=== PATIENT | male | born 1970 ===

== ENCOUNTER 2017-06-16 08:03 | Emergency (ER) | payer OTHER ==
[2017-06-16 08:11] VITALS: TEMP 97.8
[2017-06-16] MEDS ORDERED: Lactated Ringer's 1,000 ML ONE (08:44)
[2017-06-16 08:57] LABS: BASO # 0.1 K/uL (0.0-0.2); EOS # 0.1 K/uL (0.0-0.7); LYMPH # 1.2 K/uL (1.0-4.3); MONO # 0.3 K/uL (0.0-0.8); WHITE BLOOD COUNT 4.8 K/uL (4.8-10.8)
[2017-06-16] MEDS: Lactated Ringer's 1,000 ML IV ONE ×2 (09:00→10:25)
[2017-06-16 09:15] LABS: BASO % 1.4 % (0.0-2.0); EOS % 1.3 % (0.0-4.0); HEMATOCRIT 41.6 % (35.0-51.0); LYMPH % 25.2 % (20.0-40.0); MEAN CELL VOLUME 86.8 fL (80.0-94.0); MEAN CORPUSCULAR HEMOGLOBIN 31.2 pg (27.0-31.0); MEAN CORPUSCULAR HGB CONC 35.9 g/dL (33.0-37.0); MEAN PLATELET VOLUME 7.4 fL (7.2-11.7); MONO % 6.8 % (0.0-10.0); NRBC % 0.1 % (0.0-2.0); RED CELL DISTRIBUTION WIDTH 12.2 % (11.5-14.5)
--- NOTE | 2017-06-16 09:23 | C.PDOC ---
History Of Present Illness 46 yo male come in for evaluation of left sided abdominal pain intermittent for past 3 days. Pt reports, " feels like is something is swollen inside on left side, hurt for 3 days". Pt describes pain as localized, (+) reproducible over Left mid abdominal wall, non-radiating and slightly improves with BM. Otherwise , pt denies fever, chills, known trauma or injury, neck pain, CP, SOB, dyspnea, diaphoresis, palpitation, V/D or constipation, back pain, UTI sx. Pt ambulate to Ed for evaluation, not in any apparent distress. Time Seen by Provider: 06/16/17 08:12 Chief Complaint (Nursing): Abdominal Pain History Per: Patient Past Medical History Reviewed: Historical Data, Nursing Documentation, Vital Signs Vital Signs: Last Vital Signs Temp 97.8 F 06/16/17 11:01 Pulse 71 06/16/17 11:01 Resp 20 06/16/17 11:01 BP 115/72 06/16/17 11:01 Pulse Ox 99 06/16/17 11:53 - Medical History PMH: Back Problems Surgical History: No Surg Hx Family History: States: No Known Family Hx - Social History Hx Tobacco Use: No Hx Alcohol Use: No Hx Substance Use: No - Immunization History Hx Tetanus Toxoid Vaccination: No Hx Influenza Vaccination: No Hx Pneumococcal Vaccination: No Review Of Systems Except As Marked, All Systems Reviewed And Found Negative. Constitutional: Negative for: Fever, Chills ENT: Negative for: Throat Pain, Throat Swelling Cardiovascular: Negative for: Chest Pain, Palpitations Respiratory: Negative for: Cough, Shortness of Breath, Wheezing Gastrointestinal: Positive for: Abdominal Pain. Negative for: Nausea, Vomiting , Diarrhea, Constipation, Melena, Hematochezia, Hematemesis, Rectal Pain Genitourinary: Negative for: Dysuria, Frequency Musculoskeletal: Negative for: Neck Pain, Back Pain Skin: Negative for: Rash Neurological: Negative for: Weakness, Numbness, Altered Mental Status, Dizziness Physical Exam - Physical Exam Appears: Well, Non-toxic, No Acute Distress Skin: Normal Color, Warm, Dry, No Rash Eye(s): bilateral: PERRL Nose: No Flaring, No Discharge Oral Mucosa: Moist Throat: No Drooling Neck: Trachea Midline, Supple Cardiovascular: Rhythm Regular Respiratory: No Decreased Breath Sounds, No Accessory Muscle Use, No Rales, No Rhonchi Gastrointestinal/Abdominal: Soft, Tenderness (mild left sided abd. tenderness at level of umbiliculs), No Organomegaly, No Distention, No Guarding, No Hernia Back: No CVA Tenderness Extremity: Normal ROM, No Deformity, No Swelling Neurological/Psych: Oriented x3, Normal Speech ED Course And Treatment - Laboratory Results Result Diagrams: 06/16/17 08:54 06/16/17 08:54 Lab Interpretation: Normal O2 Sat by Pulse Oximetry: 99 Pulse Ox Interpretation: Normal - CT Scan/US CT - Other Rad Studies (CT/US): Read By Radiologist, Radiology Report Reviewed CT/US Interpretation: PROCEDURE: CT Abdomen and Pelvis with contrast. HISTORY : Left-sided abdominal pain. COMPARISON: None. TECHNIQUE: CT scan of the abdomen and pelvis was performed after intravenous administration of contrast. Oral contrast was not administered. Coronal and sagittal reformatted images were obtained. Contrast dose: 100 mL Visipaque. Radiation dose: Total exam DLP = 451.60 mGy-cm. This CT exam was performed using one or more of the following dose reduction techniques: Automated exposure control, adjustment of the mA and/or kV according to patient size, and/or use of iterative reconstruction technique. FINDINGS: LOWER THORAX: The lung bases are clear. LIVER: The liver is normal in size and there is diffuse fatty infiltration. No gross lesion or ductal dilatation. GALLBLADDER AND BILE DUCTS: There are no calcified gallstones. PANCREAS: Normal in size with homogeneous enhancement. No gross lesion or ductal dilatation. SPLEEN: Normal in size and appearance. ADRENALS: No discrete nodule. KIDNEYS AND URETERS: Normal in size with homogeneous enhancement. No hydronephrosis. No solid mass. VASCULATURE: No aortic aneurysm. BOWEL: There is mild segmental dilatation of proximal small bowel loops. The mid and distal small bowel loops are normal in caliber. The ileocecal junction is normal. There is moderate amount of stool in the colon. There is mild sigmoid diverticulosis without CT evidence for acute diverticulitis. APPENDIX: Normal appendix. PERITONEUM: No free fluid. No free air. LYMPH NODES: No enlarged lymph nodes. BLADDER: Decompressed. REPRODUCTIVE: Normal in size with central coarse calcifications. BONES: No acute fracture. OTHER FINDINGS: There are bilateral small fat containing inguinal hernias. IMPRESSION: 1. Mild segmental dilatation of proximal small bowel lobes is nonspecific and could be related to nonspecific enteritis or ileus. 2. No CT evidence for acute appendicitis. 3. Mild sigmoid diverticulosis without CT evidence for acute diverticulitis. Progress Note: On re-eval, pt is afberile, hemodynamicaly stable. NOn-toxic. AMbulatory in ED with stable gait. Tolerate PO well in ED. ENT: No acute findings. Neck: SUpple. Lungs: CTA B/L, BS equal B/L. ABd: Benign, (-) guarding, (-) rebound, (-) localized tenderness. back: (-) CVA tenderness. Blood work review and appears normal. CT abd/plevis review. PT has clinical findings c/w. Pt advised and ref. to F/u with PMD, GI In 2-3 days for re-eavl. return to ED if any worsening or new changes. Disposition Counseled Patient/Family Regarding: Diagnosis, Need For Followup, Rx Given - Disposition Referrals: [facility] at [facility] [Outside] Stephen Prescott MD [Staff Provider] - Disposition: HOME/ ROUTINE Disposition Time: 10:47 Condition: STABLE Additional Instructions: Take medication as prescribed Follow up with PMD, GI in 2-3 days for re-evaluation. return to ed if any worsening or new changes. Prescriptions: Ciprofloxacin [Cipro] 1 tab PO BID #14 tab metroNIDAZOLE [Flagyl] 500 mg PO BID #14 tab Instructions: Diverticulosis (ED) Forms: [employer] (Czech) - Clinical Impression Clinical Impression: Diverticulosis
[2017-06-16 09:40] LABS: ALB/GLOB RATIO 1.1 (1.0-2.1); ALKALINE PHOSPHATASE 52 U/L (38-126); ALT/SGPT 45 U/L (21-72); AST/SGOT 34 U/L (17-59); BILIRUBIN,TOTAL 0.7 mg/dL (0.2-1.3); BLOOD UREA NITROGEN 11 mg/dL (9-20); CALCIUM 8.6 mg/dl (8.6-10.4); CARBON DIOXIDE 28 mmol/L (22-30); CHLORIDE 100 mmol/L (98-107); GFR AFRICAN-AMERICAN > 60; GLUCOSE,RANDOM 93 mg/dL (75-110); POTASSIUM 3.8 mmol/L (3.6-5.2); SODIUM 136 mmol/L (132-148); TOTAL PROTEIN 7.8 g/dL (6.3-8.3)
[2017-06-16] MEDS ORDERED: Iodixanol 320 MG/ML 100 ML BOTTLE IV ONE (10:08)
[2017-06-16 10:32] LABS: RBC URINE < 1 /hpf (0-3); URINE BILIRUBIN NEGATIVE (NEGATIVE); URINE BLOOD NEGATIVE (NEGATIVE); URINE COLOR Yellow (YELLOW); URINE GLUCOSE (UA) NORMAL (Normal); URINE KETONE NEGATIVE (NEGATIVE); URINE LEUKOCYTE ESTERASE NEG Leu/uL (Negative); URINE PROTEIN NEGATIVE (NEGATIVE); URINE UROBILINOGEN NORMAL mg/dL (0.2-1.0); WBC URINE < 1 /hpf (0-5)
[2017-06-16 11:02] VITALS: BP 115/72; PULSE 71; RESP 20
--- NOTE | 2017-06-16 11:51 | CT ---
PROCEDURE: CT Abdomen and Pelvis with contrast HISTORY: Left-sided abdominal pain COMPARISON: None. TECHNIQUE: CT scan of the abdomen and pelvis was performed after intravenous administration of contrast. Oral contrast was not administered. Coronal and sagittal reformatted images were obtained. Contrast dose: 100 mL Visipaque Radiation dose: Total exam DLP = 451.60 mGy-cm. This CT exam was performed using one or more of the following dose reduction techniques: Automated exposure control, adjustment of the mA and/or kV according to patient size, and/or use of iterative reconstruction technique. FINDINGS: LOWER THORAX: The lung bases are clear. LIVER: The liver is normal in size and there is diffuse fatty infiltration. No gross lesion or ductal dilatation. GALLBLADDER AND BILE DUCTS: There are no calcified gallstones. PANCREAS: Normal in size with homogeneous enhancement. No gross lesion or ductal dilatation. SPLEEN: Normal in size and appearance. ADRENALS: No discrete nodule. KIDNEYS AND URETERS: Normal in size with homogeneous enhancement. No hydronephrosis. No solid mass. VASCULATURE: No aortic aneurysm. BOWEL: There is mild segmental dilatation of proximal small bowel loops. The mid and distal small bowel loops are normal in caliber. The ileocecal junction is normal. There is moderate amount of stool in the colon. There is mild sigmoid diverticulosis without CT evidence for acute diverticulitis. APPENDIX: Normal appendix. PERITONEUM: No free fluid. No free air. LYMPH NODES: No enlarged lymph nodes. BLADDER: Decompressed. REPRODUCTIVE: Normal in size with central coarse calcifications. BONES: No acute fracture. OTHER FINDINGS: There are bilateral small fat containing inguinal hernias. IMPRESSION: 1. Mild segmental dilatation of proximal small bowel lobes is nonspecific and could be related to nonspecific enteritis or ileus. 2. No CT evidence for acute appendicitis. 3. Mild sigmoid diverticulosis without CT evidence for acute diverticulitis.
[2017-06-16 11:53] VITALS: O2SAT 99
== END 2017-06-16 12:06 | disposition home or self-care (01) ==
LOC: C.ER 08:03
DX: K57.90 Diverticulosis of intestine, part unspecified, without perforation or abscess without bleeding (principal)
CPT/HCPCS: 74177; 80053; 81001; 83690; 85025; 96360; 96361; 99284; J7120; Q9967

== ENCOUNTER 2017-06-21 23:38 | Emergency (ER) | payer OTHER ==
[2017-06-22] MEDS ORDERED: Sodium Chloride 0.9% 1,000 ML IV ONE (00:28)
[2017-06-22] MEDS ORDERED: Sodium Chloride 0.9% 1,000 ML ONE (00:35)
[2017-06-22 00:38] LABS: BASO # 0.1 K/uL (0.0-0.2); BASO % 1.2 % (0.0-2.0); EOS # 0.2 K/uL (0.0-0.7); EOS % 2.9 % (0.0-4.0); HEMATOCRIT 45.6 % (35.0-51.0); LYMPH # 1.4 K/uL (1.0-4.3); LYMPH % 22.1 % (20.0-40.0); MEAN CELL VOLUME 87.8 fL (80.0-94.0); MEAN CORPUSCULAR HEMOGLOBIN 31.1 pg (27.0-31.0); MEAN CORPUSCULAR HGB CONC 35.4 g/dL (33.0-37.0); MEAN PLATELET VOLUME 7.4 fL (7.2-11.7); MONO # 0.5 K/uL (0.0-0.8); MONO % 8.5 % (0.0-10.0); NRBC % 0.1 % (0.0-2.0); RED CELL DISTRIBUTION WIDTH 12.5 % (11.5-14.5); WHITE BLOOD COUNT 6.2 K/uL (4.8-10.8)
[2017-06-22 00:40] LABS: RBC URINE < 1 /hpf (0-3); URINE BILIRUBIN NEGATIVE (NEGATIVE); URINE BLOOD NEGATIVE (NEGATIVE); URINE COLOR Yellow (YELLOW); URINE GLUCOSE (UA) NORMAL (Normal); URINE KETONE NEGATIVE (NEGATIVE); URINE LEUKOCYTE ESTERASE TRACE Leu/uL (Negative); URINE PROTEIN NEGATIVE (NEGATIVE); URINE UROBILINOGEN NORMAL mg/dL (0.2-1.0); WBC URINE 1 /hpf (0-5)
[2017-06-22 01:14] VITALS: TEMP 98.2
[2017-06-22 01:32] LABS: ALB/GLOB RATIO 1.3 (1.0-2.1); ALKALINE PHOSPHATASE 57 U/L (38-126); ALT/SGPT 101 U/L (21-72); AST/SGOT 72 U/L (17-59); BILIRUBIN,TOTAL 0.5 mg/dL (0.2-1.3); BLOOD UREA NITROGEN 8 mg/dL (9-20); CALCIUM 8.5 mg/dl (8.6-10.4); CARBON DIOXIDE 26 mmol/L (22-30); CHLORIDE 101 mmol/L (98-107); GFR AFRICAN-AMERICAN > 60; GLUCOSE,RANDOM 96 mg/dL (75-110); POTASSIUM 3.8 mmol/L (3.6-5.2); SODIUM 136 mmol/L (132-148); TOTAL PROTEIN 7.5 g/dL (6.3-8.3)
--- NOTE | 2017-06-22 01:47 | C.PDOC ---
History Of Present Illness Patient presents to ED c/o LUQ pain x 2 days. Patient was seen here on 06/16 and diagnosed with diverticulosis, given Rxs for Ciprofloxacin and Flagyl. He states the LLQ pain improved. Patient denies fever, nausea/vomiting/diarrhea, dysuria/hematuria, flank pain, testicular pain. Time Seen by Provider: 06/21/17 23:57 Chief Complaint (Nursing): Abdominal Pain History Per: Patient History/Exam Limitations: no limitations Onset/Duration Of Symptoms: Days Severity: Mild Location Of Pain/Discomfort: LUQ Quality Of Discomfort: "Pain" Associated Symptoms: denies: Nausea, Vomiting, Diarrhea Past Medical History Reviewed: Historical Data, Nursing Documentation, Vital Signs Vital Signs: Last Vital Signs Temp 98.2 F 06/22/17 02:14 Pulse 89 06/22/17 02:14 Resp 18 06/22/17 02:14 BP 140/80 06/22/17 02:14 Pulse Ox 99 06/22/17 03:59 - Medical History PMH: Back Problems, Diverticulitis Family History: States: No Known Family Hx - Social History Hx Tobacco Use: No Hx Alcohol Use: No Hx Substance Use: No - Immunization History Hx Tetanus Toxoid Vaccination: No Hx Influenza Vaccination: No Hx Pneumococcal Vaccination: No Review Of Systems Except As Marked, All Systems Reviewed And Found Negative. Constitutional: Negative for: Fever, Chills Cardiovascular: Negative for: Chest Pain, Palpitations Respiratory: Negative for: Shortness of Breath Gastrointestinal: Positive for: Abdominal Pain. Negative for: Nausea, Vomiting , Diarrhea Genitourinary: Negative for: Dysuria, Hematuria Physical Exam - Physical Exam Appears: Well, Non-toxic, No Acute Distress Oral Mucosa: Moist Cardiovascular: Rhythm Regular Respiratory: Normal Breath Sounds, No Rales, No Rhonchi, No Wheezing Gastrointestinal/Abdominal: Bowel Sounds, Soft, Tenderness (mild LUQ TTP, (-) Alonso's, (-) McBurney's) Back: Normal Inspection, No CVA Tenderness Neurological/Psych: Oriented x3 ED Course And Treatment - Laboratory Results Result Diagrams: 06/22/17 00:35 06/22/17 00:35 O2 Sat by Pulse Oximetry: 99 (RA) Pulse Ox Interpretation: Normal Progress Note: Blood work, UA ordered and reviewed. Patient given IV pepcid, IV toradol. Reevaluation Time: 02:15 Reassessment Condition: Improved (On reassessment, patient states his pain has improved and he feels better. On exam, abdomen is soft and nontender. Blood work shows very mild elevation in lipase and LFTS. Patient denies alchohol use/ abuse. He is well appearing and comfortable being discharged home. Rx given for protonix, and patient instructed to follow up with his GI specialist in [place] within 1 week. He understands he should return to ED if symptoms worsen.) Disposition Counseled Patient/Family Regarding: Studies Performed, Diagnosis, Need For Followup, Rx Given - Disposition Referrals: Wilver Renner MD [Medical Doctor] - Disposition: HOME/ ROUTINE Disposition Time: 02:15 Condition: STABLE Additional Instructions: FOLLOW UP WITH YOUR DOCTOR IN 1-2 DAYS, AND WITH YOUR GI SPECIALIST WITHIN 1 WEEK USE PROTONIX DAILY DRINK PLENTY OF WATER EAT BLAND DIET FOR SEVERAL DAYS RETURN TO ER IF SYMPTOMS WORSEN Prescriptions: Pantoprazole [Protonix EC Tab] 20 mg PO DAILY #30 ect Instructions: Abdominal Pain (ED) Forms: [employer] (Maori) Print Language: ANGUILLAN - POA Present On Arrival: None - Clinical Impression Clinical Impression: LUQ abdominal pain, Elevated lipase, LFT elevation
[2017-06-22 02:15] VITALS: BP 140/80; PULSE 89; RESP 18
[2017-06-22 03:56] VITALS: O2SAT 99
== END 2017-06-22 02:15 | disposition home or self-care (01) ==
LOC: C.ER 23:38
DX: R74.8 Abnormal levels of other serum enzymes (principal); R10.12 Left upper quadrant pain; R79.89 Other specified abnormal findings of blood chemistry
CPT/HCPCS: 80053; 81001; 83690; 85025; 96361; 96374; 96375; 99285; J1885; J7040

== ENCOUNTER 2018-03-22 19:56 | Emergency (ER) | payer BC, OTHER ==
[2018-03-22 20:12] VITALS: RESP 16
--- NOTE | 2018-03-22 21:44 | C.PDOC ---
History Of Present Illness 47 y/o M p/w chest pain x 1 month. Describes pain as like electricity in focal area in L sided chest, lasting moments. States now in the last 2 days, having palpitations as well. Denies fever, chills, cough, diaphoresis, nausea, vomi ting, dyspnea, leg swelling, hormone use, recent travel/surgery. Time Seen by Provider: 03/22/18 21:12 Chief Complaint (Nursing): Chest Pain Past Medical History Vital Signs: Last Vital Signs Temp 98.8 F 03/22/18 20:06 Pulse 78 03/22/18 20:06 Resp 16 03/22/18 20:06 BP 118/68 03/22/18 20:06 Pulse Ox 97 03/22/18 20:06 - Medical History PMH: Back Problems, Diverticulitis Family History: States: No Known Family Hx - Social History Hx Tobacco Use: No Hx Alcohol Use: No Hx Substance Use: No - Immunization History Hx Tetanus Toxoid Vaccination: No Hx Influenza Vaccination: No Hx Pneumococcal Vaccination: No Review Of Systems Except As Marked, All Systems Reviewed And Found Negative. Constitutional: Negative for: Fever Respiratory: Negative for: Shortness of Breath Physical Exam - Physical Exam Additional Physical Exam Comments: Gen: NAD head: NC/AT Eyes: PERRL ENT: MMM NEck: Supple Chest: No tenderness CV: Regular rate Lungs: CTA b/l Abd: Soft, NT Back: No CVA tenderness Extremiteis: No edema Skin: no rash Neuro: Alert ED Course And Treatment - Laboratory Results Result Diagrams: 03/22/18 21:51 03/22/18 21:51 O2 Sat by Pulse Oximetry: 97 Medical Decision Making Medical Decision Making: EKG NSR 70 bpm, no ST/T wave changes. PERC negative. CXR no acute disease. Disposition - Disposition Referrals: [facility] at [facility] [Outside] Disposition: HOME/ ROUTINE Disposition Time: 22:50 Condition: STABLE Instructions: Chest Pain That Is Not Caused by the Heart (DC) Forms: [employer] (Cypriot) - Clinical Impression Clinical Impression: Chest pain
[2018-03-22 21:56] LABS: BASO # 0.1 K/uL (0.0-0.2); BASO % 1.2 % (0.0-2.0); EOS # 0.2 K/uL (0.0-0.7); EOS % 3.3 % (0.0-4.0); HEMOGLOBIN 14.6 g/dL (12.0-18.0); LYMPH # 1.8 K/uL (1.0-4.3); LYMPH % 36.5 % (20.0-40.0); MEAN CELL VOLUME 87.8 fL (80.0-94.0); MEAN CORPUSCULAR HEMOGLOBIN 30.7 pg (27.0-31.0); MONO # 0.4 K/uL (0.0-0.8); MONO % 7.7 % (0.0-10.0); NEUT # 2.5 K/uL (1.8-7.0); NEUT % 51.3 % (50.0-75.0); RBC 4.74 Mil/uL (4.40-5.90); RED CELL DISTRIBUTION WIDTH 12.7 % (11.5-14.5); WHITE BLOOD COUNT 4.9 K/uL (4.8-10.8)
[2018-03-22 22:11] LABS: ALB/GLOB RATIO 1.5 (1.0-2.1); ALBUMIN 4.2 g/dL (3.5-5.0); ALT/SGPT 35 U/L (21-72); AST/SGOT 28 U/L (17-59); BLOOD UREA NITROGEN 17 mg/dL (9-20); CALCIUM 9.5 mg/dl (8.6-10.4); GFR NON-AFRICAN AMERICAN > 60
[2018-03-22 22:26] VITALS: BP 129/73; PULSE 73
[2018-03-22 22:52] VITALS: O2SAT 97
[2018-03-22 23:00] VITALS: TEMP 98.2
--- NOTE | 2018-03-23 15:10 | RAD ---
Date of service: 03/22/2018 HISTORY: palpitations COMPARISON: No prior. TECHNIQUE: Chest PA and lateral FINDINGS: LUNGS: No active pulmonary disease. PLEURA: No significant pleural effusion identified. No pneumothorax apparent. CARDIOVASCULAR: Normal. OSSEOUS STRUCTURES: No significant abnormalities. VISUALIZED UPPER ABDOMEN: Normal. OTHER FINDINGS: None. IMPRESSION: No active disease.
--- NOTE | 2018-03-25 10:03 | CARD ---
APPROVED REPORT Date of service: 03/22/2018 EKG Measurement Heart [id number] ID [id number] <Conclusion> Normal sinus rhythm Rightward axis Borderline ECG
== END 2018-03-22 22:57 | disposition home or self-care (01) ==
LOC: C.ER 19:56
DX: R07.9 Chest pain, unspecified (principal)